=== PATIENT | female | born 1980 | race Caucasian/White ===

== ENCOUNTER 2018-05-16 09:23 | Emergency (ER) | payer BC, OTHER ==
[2018-05-16 09:56] LABS: Pregnancy Test - Urine (BHCG) Negative (Negative); Pregu Control Background? CLEAR/WHITE (CLR/WHITE); Pregu Control Bar Appear? YES (CONTROL BAR); Specific Gravity 1.013 (1.002-1.036)
[2018-05-16] MEDS ORDERED: Bupivacaine 0.5% 10 ML VIAL ONE (10:42)
--- NOTE | 2018-05-16 11:05 | CT ---
CT CHEST WITHOUT CONTRAST: HISTORY: Blunt left chest trauma. COMPARISON: None. FINDINGS: The lungs are clear. No pneumothorax. No effusion. Low-grade atelectatic changes left lung base. No retrosternal hematoma. No soft tissue contusion is appreciated. No large hematoma. The sternum, manubrium, and xiphoid processes are intact. Clavicles are intact. Shoulder girdles ar e intact. Costal cartilage is intact. Nondisplaced fracture left anterior 3rd rib. Nondisplaced left lateral 4th rib. Of note, the posterior 1st ribs are not interrogated on this examination. IMPRESSION: Minimally displaced 1 cortex width fracture of the left anterior 3rd rib with nondisplaced left anter olateral 4th rib fractures. Minimal adjacent soft tissue contusion. No underlying pulmonary contusi on, pneumothorax, or effusion. POS: [facility]
== END 2018-05-16 11:07 | disposition home or self-care (01) ==
LOC: SCSER 09:23
DX: S22.42XA Multiple fractures of ribs, left side, initial encounter for closed fracture (principal); E10.9 Type 1 diabetes mellitus without complications; F17.210 Nicotine dependence, cigarettes, uncomplicated; W18.30XA Fall on same level, unspecified, initial encounter
CPT/HCPCS: 71250; 81025; 93005; J3490

== ENCOUNTER 2018-07-10 10:16 | Observation (INO) | payer BC, OTHER ==
[2018-07-10] MEDS ORDERED: Ondansetron PF 4 MG/2 ML Vial ONE (10:59)
[2018-07-10] MEDS ORDERED: Morphine 4 MG/ML VIAL ONE (10:59)
[2018-07-10 11:04] LABS: Bilirubin Small (Negative); Blood, Urine Moderate (Negative); Clarity Clear (Clear); Glucose, Urine (Dipstick) 500 mg/dL (Negative); Leukocyte Negative (Negative); Nitrite Negative (Negative); Protein, Urine (Dipstick) Negative (Neg-Trace); Specific Gravity, Urine 1.015 (1.005-1.030); Urobilinogen 0.2 mg/dL (0.2-1.0)
[2018-07-10 11:12] LABS: BHCG - Serum Negative (NEGATIVE); Pregs Control Background? CLEAR/WHITE (CLR/WHITE); Pregs Control Bar Appear? YES (CONTROL BAR)
[2018-07-10 11:14] LABS: RBC/HPF 0-3 HPF (0-3)
[2018-07-10 11:15] LABS: Bacteria/HPF Rare-Few HPF (None Seen); Squamous Epithelial 0-3 HPF (0-3)
[2018-07-10 11:19] LABS: ALT (SGPT) 8 U/L (8-55); AST (SGOT) 9 U/L (5-34); Albumin 4.3 g/dL (3.5-5.0); Alkaline Phosphatase 94 U/L (40-150); Anion Gap 19 mmol/L (10-20); BUN (Urea Nitrogen) 10 mg/dL (7.0-18.7); Bilirubin, Total 1.1 mg/dL (0.2-1.2); Calc. Creatinine Clearance 0 mL/min (70-130); Calcium 9.4 mg/dL (7.8-10.44); Carbon Dioxide 19 mmol/L (22-29); Chloride 102 mmol/L (98-107); Estimated GFR-MDRD 75; Globulin 3.1 g/dL (2.4-3.5); Glucose 151 mg/dL (70-105); Potassium 3.7 mmol/L (3.5-5.1); Protein, Total 7.4 g/dL (6.0-8.3); Sodium 136 mmol/L (136-145)
[2018-07-10 11:20] LABS: Band 22 % (5-11); Hemoglobin 16.1 g/dL (12.0-16.0); Lymphocytes 1 % (21-51); MDiff Complete? YES; Mean Corpuscular HGB CONC 33.8 g/dL (32.0-36.0); Mean Corpuscular Hemoglobin 33.6 pg (27.0-31.0); Mean Corpuscular Volume 99.6 fL (78.0-98.0); Mean Platelet Volume 6.9 fL (7.4-10.4); Neutrophil 73 % (42-75); Platelet Count 290 thou/uL (130-400); Platelet Morphology Comment Appears Adequate; RBC Distribution Width 12.3 % (11.5-14.5); Reactive Lymphocytes 4 % (0-10); Red Blood Cell (RBC) Count 4.78 mill/uL (4.20-5.40); Toxic Granulation SLIGHT; Vacuoles SLIGHT; White Blood Cell (WBC) Count 20.8 thou/uL (4.8-10.8)
[2018-07-10 11:32] LABS: Lipase Less than 4 U/L (8-78)
--- NOTE | 2018-07-10 12:42 | CT ---
CT ABDOMEN AND PELVIS WITH IV AND ENTERIC CONTRAST: Date: 07/10/18 COMPARISON: Prior exam dated 04/05/12. FINDINGS: Lung bases are clear. Areas of geographic hypodensity with visible vessels running through the region most consistent with focal fatty infiltration is stable. No new focal hepatic lesion is evident. The pancreas, adrenal glands, and spleen appear within normal limits. Kidneys are normal appearing. There is a retroaortic left renal vein. The appendix is surgically absent. There is fluid density filling the rectum and colon, which can be seen with diarrheal states and a mi ld colitis. There is no definite free fluid evident within the pelvis. No acute osseous abnormality is demonstrated. IMPRESSION: 1. Fluid density seen within the colon and rectum can be seen in diarrheal state and a mild colitis. 2. Focal fatty infiltration of the liver. 3. Postsurgical changes of prior appendectomy. POS: [facility]
[2018-07-10] MEDS ORDERED: Sodium Chloride 0.9% 1,000 ML IV SCH (15:30)
[2018-07-10] MEDS ORDERED: Zolpidem Tartrate 5 MG TAB PO PRN (15:47)
[2018-07-10] MEDS ORDERED: Acetaminophen 325 MG TAB PO PRN (15:47)
[2018-07-10] MEDS ORDERED: Ondansetron PF 4 MG/2 ML Vial IVP PRN (15:47)
[2018-07-10] MEDS ORDERED: Dextrose 5% in Water 1,000 ML IV PRN (15:53)
[2018-07-10] MEDS ORDERED: Dextrose 50% Abboject 50 ML SYRINGE SLOW IVP PRN (15:53)
[2018-07-10] MEDS ORDERED: Insulin Regular 300 UNITS/3 ML VIAL SC PRN (15:53)
[2018-07-10] MEDS ORDERED: SUBCUTANEOUS INSULIN PUMP MC SCH (16:00)
[2018-07-10] MEDS ORDERED: INSULIN PUMP SC SCH (17:00)
--- NOTE | 2018-07-10 17:03 | HP ---
HISTORY OF PRESENT ILLNESS: This is a 38-year-old white female, type 1 diabetic, who presents with abdominal pain. She was doing well until Wednesday evening. She went to an event called [employer]. Wednesday morning, she woke up with abdominal pain, which became worse throughout the day. Finally, this morning her pain became so intense. She presented to the emergency room. She was seen by Dr. Mo and noted to have some vaginal discharge and cervical motion tenderness. He diagnosed with PID and recommended admission. PAST MEDICAL HISTORY: 1. Type 1 diabetes. 2. Hypothyroidism. PAST SURGICAL HISTORY: Appendectomy and x2. FAMILY HISTORY: Father is unknown. She does have only history she knows that her paternal grandmother had with breast cancer. SOCIAL HISTORY: She has had smokes half pack per day x7 years. She is with 2 kids. She drinks occasional alcohol. ALLERGIES: NONE. MEDICATIONS: 1. Synthroid 75 daily. 2. Invokana 300 daily. 3. Adderall 20 t.i.d. REVIEW OF SYSTEMS: As above. PHYSICAL EXAMINATION: VITAL SIGNS: Stable, afebrile. GENERAL: The patient is in moderate abdominal distress. HEENT: Clear. NECK: Supple. HEART: Regular rate and rhythm. LUNGS: Clear. ABDOMEN: Soft with diffuse tenderness in upper and lower quadrants. EXTREMITIES: No edema. LABORATORY DATA: White count 20.8, H and H 16 and 47. Electrolytes normal. CO2 is 19, glucose 151. Lipase less than 4. UA with marked ketones and 7 to 10 wbc's. ASSESSMENT: 1. PID. Cultures are pending. 2. Abdominal pain may be due to a gastroenteritis. [employer] event with 100s of different sampling. The patient may simply have a gastroenteritis from this. 3. Type 1 diabetes. 4. Hypothyroid. PLAN: 1. IV hydrate. 2. Treat for PID with cefoxitin and doxy. 3. Pain control. 4. Resume insulin pump and sliding scale. 5. CBC and BMP in a.m. Job ID: [id number]
[2018-07-10] MEDS: Sodium Chloride 0.9% 1,000 ML IV SCH (17:06)
[2018-07-10] MEDS: HYDROcodone/Acetaminophen 7.5/325 mg Tablet PO PRN (17:09)
[2018-07-10 17:28] VITALS: BMI 24.0
[2018-07-10] MEDS ORDERED: cefOXitin Sodium/Dextrose,Iso 2 GM in Premix Bag 1 BAG IVPB SCH ×2 (18:00→21:00)
[2018-07-10] MEDS ORDERED: CEFOXITIN IVPB SCH (18:00)
[2018-07-10] MEDS ORDERED: diphenhydrAMINE 50 MG CAP PO PRN (19:22)
[2018-07-10] MEDS: Famotidine 20 MG TAB PO SCH (20:06)
[2018-07-10] MEDS ORDERED: Doxycycline 100 MG in Syringe 0 ML IVPB SCH (21:00)
[2018-07-11] MEDS: HYDROcodone/Acetaminophen 7.5/325 mg Tablet PO PRN ×3 (01:02→15:03)
[2018-07-11] MEDS: Sodium Chloride 0.9% 1,000 ML IV SCH ×2 (03:10→16:40)
[2018-07-11 05:59] LABS: Anion Gap 13 mmol/L (10-20); BUN (Urea Nitrogen) 7 mg/dL (7.0-18.7); Calc. Creatinine Clearance 114 mL/min (70-130); Calcium 8.2 mg/dL (7.8-10.44); Carbon Dioxide 18 mmol/L (22-29); Chloride 111 mmol/L (98-107); Estimated GFR-MDRD Greater than 90; Glucose 99 mg/dL (70-105); Sodium 138 mmol/L (136-145)
[2018-07-11 06:13] LABS: #Basophils 0.1 thou/uL (0.0-0.2); #Eosinphils 0.2 thou/uL (0.0-0.7); #Lymphocytes 2.3 thou/uL (1.20-3.40); #Monocytes 0.7 thou/uL (0.11-0.59); %Basophils 0.4 % (0.0-1.0); %Eosinophils 1.3 % (0.0-10.0); %Monocytes 5.2 % (0.0-10.0); %Neutrophils 77.1 % (42.0-75.0); Hemoglobin 12.1 g/dL (12.0-16.0); Mean Corpuscular HGB CONC 32.7 g/dL (32.0-36.0); Mean Corpuscular Hemoglobin 33.8 pg (27.0-31.0); Mean Platelet Volume 7.6 fL (7.4-10.4); Platelet Count 232 thou/uL (130-400); RBC Distribution Width 11.6 % (11.5-14.5); Red Blood Cell (RBC) Count 3.57 mill/uL (4.20-5.40); White Blood Cell (WBC) Count 14.3 thou/uL (4.8-10.8)
[2018-07-11] MEDS: Famotidine 20 MG TAB PO SCH ×2 (10:48→21:05)
[2018-07-11] MEDS: Levothyroxine Sodium 75 MCG TAB PO SCH (10:48)
[2018-07-11] MEDS: Enoxaparin Sodium 40 MG/0.4 ML SYRINGE SC SCH (10:48)
--- NOTE | 2018-07-11 13:38 | PRG ---
DATE OF SERVICE: 07/11/2018 SUBJECTIVE: Ms. La had been admitted for lower abdominal pain. OBJECTIVE: VITAL SIGNS: Stable and afebrile. ABDOMEN: She still appears to have some rather significant tenderness to the left lower quadrant, this was more consistent with colonic pain rather than PID. IMPRESSION: Colitis. History is more compatible with this being colitis, rule out CT scan findings. PLAN: We will add Flagyl IV to the treatment regimen, and we will get GI consult for further treatment and recommendations. Job ID: [id number]
[2018-07-11] MEDS ORDERED: metroNIDAZOLE 500 MG in Premix Bag 1 BAG IVPB SCH (15:15)
[2018-07-11] MEDS: metroNIDAZOLE 500 MG in Premix Bag 1 BAG IVPB SCH ×2 (16:40→22:22)
[2018-07-11] MEDS ORDERED: Dextrose 5% in Water 1,000 ML IV PRN (16:42)
[2018-07-11] MEDS ORDERED: Dextrose 50% Abboject 50 ML SYRINGE IVP PRN (16:42)
[2018-07-11] MEDS: HumaLOG 300 UNITS/3 ML VIAL SC PRN ×2 (18:22→21:05)
[2018-07-11] MEDS ORDERED: Insulin Glargine 15 UNITS in Pre-Filled Syringe 1 EACH SC SCH (18:30)
--- NOTE | 2018-07-11 20:48 | CON ---
DATE OF CONSULTATION: 07/11/2018 CHIEF COMPLAINT: Abdominal pain. HISTORY OF PRESENT ILLNESS: Ms. La is a 38-year-old woman who Wednesday morning developed aching lower abdominal pain that radiated up toward her upper abdomen and became more stabbing in that area. She has had no nausea or vomiting with this. Her pain went on all day Wednesday and then Wednesday morning continued, so she went on into the emergency room on Wednesday, which was yesterday. She did have an episode of diarrhea, Wednesday morning. This was liquidy brown stool. She had a CT scan performed in the emergency room that showed fluid density in the colon suggestive of a diarrheal illness, but no bowel wall thickening or inflammatory changes typically noted. She did present with a high white blood cell count and significant hemo concentration. Her hemoglobin was 16.1 on yesterday and 12.1 today. Her white blood cell count decreased from 20.8 yesterday to 14.3 today. She has type 1 diabetes mellitus diagnosed at age 11. She states her blood sugars ran pretty normally on Wednesday and Wednesday. She started eating solid food again this afternoon and her blood sugar has gone up some subjectively. Normally, she has two soft brown formed stools daily at baseline. She has had no blood in stool. No black stools. No fevers associated with this. Her weight has been stable. PAST MEDICAL HISTORY: Hypothyroidism, type 1 diabetes mellitus, ADHD. PAST SURGICAL HISTORY: Appendectomy, x2. FAMILY HISTORY: Her maternal uncle had colon cancer at age 47. SOCIAL HISTORY: She smoked half pack per day. A couple of drinks per week. No drugs. ALLERGIES: CEFOXITIN WHICH IS A NEW ALLERGY THIS HOSPITAL STAY. MEDICATIONS: Prior to admission, 1. Synthroid. 2. Invokana. 3. Adderall. Currently as an inpatient, 1. She is on doxycycline. 2. Enoxaparin. 3. Famotidine. 4. Metronidazole. 5. Invokana. 6. Levothyroxine. 7. Insulin. Please note that she did receive a dose of cefoxitin yesterday, but she had a rash that broke out associated with that. REVIEW OF SYSTEMS: Negative x10 systems reviewed except as stated in history of present illness. PHYSICAL EXAMINATION: VITAL SIGNS: Temperature 98.2, pulse 80, and blood pressure 108/61. GENERAL: She is in no acute distress. Alert and oriented x3. HEENT: Eyes have no scleral icterus. Oropharynx is clear without lesions. No cervical or supraclavicular lymphadenopathy. LUNGS: Clear to auscultation bilaterally. HEART: Regular rate and rhythm without murmur. ABDOMEN: Soft. She is tender in the lower abdomen without guarding. Her bowel sounds are active. EXTREMITIES: No lower extremity edema. Cranial nerves are grossly intact. LABORATORY DATA: Creatinine 0.69, bilirubin 1.1, AST 9, ALT 8, alkaline phosphatase 94, lipase 4, albumin 4.3. test was negative. Beta hydroxybutyrate was 3.0. Sodium 138, potassium 4.0, chloride 111, CO2 18, anion gap 13, BUN 7, creatinine 0.69. White blood cell count is 14.3, down from 20.8, hemoglobin is 12.1, down from 16.1 yesterday, platelets 232. IMPRESSION: 1. Lower abdominal pain. She did have diarrhea, Wednesday morning and then a small episode of diarrhea, Wednesday evening and then three small episodes of diarrhea this afternoon. This is all consistent with an acute infectious gastroenteritis. She was at a function of [employer] and ate multiple different items at that time. None of her friends did get sick. However, certainly this is an exposure risk. Most infectious gastroenteritis should run its course, even without antibiotics. However, given the severe dehydration on presentation and ongoing abdominal pain and question of possible pelvic inflammatory disease, I would complete a course of antibiotics for her. 2. There are no acute changes by CT scan or chronic symptoms or bleeding to indicate colonoscopy at this point. Given her family history of colon cancer in her maternal uncle at age 47, I would have a low threshold for endoscopy should she develop any further symptoms in the future. This was discussed with her and she will contact us for followup if she does develop further symptoms. RECOMMENDATIONS: 1. Continue antibiotics. 2. Request stool studies for C diff and culture and ova and parasite and lactoferrin. 3. If she develops bleeding or chronic symptoms, then would plan colonoscopy at that point. 4. She is tolerating a solid diet now and we will see how she progresses clinically. Job ID: [id number]
[2018-07-12] MEDS: HYDROcodone/Acetaminophen 7.5/325 mg Tablet PO PRN (02:51)
[2018-07-12] MEDS: metroNIDAZOLE 500 MG in Premix Bag 1 BAG IVPB SCH (06:33)
[2018-07-12 08:07] VITALS: BP 98/61; TEMP 98.1
[2018-07-12] MEDS: Sodium Chloride 0.9% 1,000 ML IV SCH (08:56)
[2018-07-12] MEDS ORDERED: INVOKANA PO SCH (09:00)
[2018-07-12] MEDS ORDERED: Insulin Glargine 15 UNITS in Pre-Filled Syringe 1 EACH SC SCH (09:00)
[2018-07-12] MEDS: Enoxaparin Sodium 40 MG/0.4 ML SYRINGE SC SCH (09:18)
[2018-07-12] MEDS: Levothyroxine Sodium 75 MCG TAB PO SCH (09:20)
[2018-07-12] MEDS: Famotidine 20 MG TAB PO SCH (09:20)
--- NOTE | 2018-07-12 13:39 | PRG ---
DATE OF SERVICE: 07/12/2018 SUBJECTIVE: Ms. La is doing much better today. She is tolerating all p.o. intake. Her abdominal pain has decreased significantly since we have instituted Flagyl therapy. OBJECTIVE: VITAL SIGNS: Temperature 98.5, pulse 74, respirations 18, O2 saturation 99%, BP 110/63. LUNGS: Clear. HEART: Reveals a regular rate and rhythm without murmurs, gallops, or rubs. ABDOMEN: There is decreased tenderness in left lower quadrant. There is certainly no rebound, guarding. Bowel sounds are present and active. LABORATORY DATA: Her blood sugars remain slightly elevated. IMPRESSION: Probable acute gastroenteritis. GI consult has confirmed this diagnosis as well. I agree with this diagnosis. PLAN: The patient tolerated all p.o. intake. She desires to go home. We will send her home today on metronidazole as well as Levaquin. She will follow up with me in 1 week. Job ID: [id number]
--- NOTE | 2018-07-13 05:03 | DIS ---
DATE OF ADMISSION: 07/10/2018 DATE OF DISCHARGE: 07/12/2018 DISCHARGE DIAGNOSES: Gastroenteritis, possible bacterial vaginitis. HOSPITAL SUMMARY: The patient is a 38-year-old female, who presented to the emergency room complaining of left lower quadrant abdominal pain and discomfort. She was seen and evaluated in the ER. CT scan did reveal some colitis. It was the ER doctor's opinion that she may be also suffering from PID. She subsequently was placed in the hospital, begun on IV cefoxitin and doxycycline. Additionally, she was placed on IV Flagyl and the next day, her symptoms improved significantly with IV Flagyl. By 07/12/2018, she was tolerating all p.o. intake well. She will be discharged home on Flagyl 500 mg p.o. t.i.d., as well as Levaquin 500 mg p.o. daily. She will continue her home medications. She will follow up with me in 1 week. Job ID: [id number]
[2018-07-14 21:20] LABS: Chlamydia by PCR Not Detected (NotDetected); GC by PCR DETECTED (NotDetected)
== END 2018-07-12 09:53 | disposition home or self-care (01) ==
LOC: SCSER 10:16 → 2SW 13:15 → SCSER 14:39
PROVIDERS: ADMIT Family Medicine; ATTEND Family Medicine
DX: K52.9 Noninfective gastroenteritis and colitis, unspecified (principal); E03.9 Hypothyroidism, unspecified; E10.9 Type 1 diabetes mellitus without complications; F17.210 Nicotine dependence, cigarettes, uncomplicated; F90.9 Attention-deficit hyperactivity disorder, unspecified type; Z79.84 Long term (current) use of oral hypoglycemic drugs; Z79.899 Other long term (current) drug therapy; Z88.1 Allergy status to other antibiotic agents
CPT/HCPCS: 36415; 36416; 74177; 80048; 80053; 81003; 81015; 82010; 83605; 83630; 83690; 84703; 85025; 87045; 87046; 87077; 87086; 87324; 87328; 87329; 87449; 87480; 87491; 87493; 87510; 87591; 87660; 87899; 96361; 96365; 96366; 96367; 96372; 96374; 96375; G0378; J1650; J1815; J1825; J2270; J2405; J7050